=== PATIENT | female | born 1960 | race Two or more races ===

== ENCOUNTER 2018-05-19 07:28 | Emergency (ER) | payer OTHER ==
[~2018-05-19] VITALS: Ht 170.2 cm; Wt 74.8 kg
[2018-05-19] MEDS ORDERED: KETO10TA2 PO (11:43)
[2018-05-19] MEDS ORDERED: NORFLEX100MG PO (11:43)
== END 2018-05-19 11:53 | disposition home or self-care (01) ==
LOC: ER 07:28
DX: M54.5 Low back pain (principal)

== ENCOUNTER 2019-05-07 11:14 | Outpatient (CLI) | payer OTHER ==
[~2019-05-07 11:14] MED LIST: KETO10TA2 PO; NORFLEX100MG PO
== END 2019-05-07 11:19 | disposition home or self-care (01) ==
LOC: LAB 11:14
DX: J11.1 Influenza due to unidentified influenza virus with other respiratory manifestations (principal)